=== PATIENT | female | born 2000 | race Caucasian/White ===

== ENCOUNTER 2021-12-11 02:15 | Emergency (ER) | payer OTHER, SELFPAY ==
[2021-12-11 02:20] VITALS: BP 124/79; PULSE 76; RESP 16; TEMP 36.4; O2SAT 100
--- NOTE | 2021-12-11 02:41 | PC.NURSE ---
Pt states her and her boyfriend broke up tonight and her boyfriend was shay being a rika about it therefore the pt told her boyfriend you make me want to kill myself sometimes and the pt left with her prescription medication which led the boyfriend to call 911. pt states denies SI/HI or having a plan at this time. Pt states I would never be able to kill myself
--- NOTE | 2021-12-11 02:56 | ED.GENADULT ---
HPI - General Adult General Chief complaint: Psychiatric Symptoms Stated complaint: suicidal ideation Time Seen by Provider: 12/11/21 02:44 History of Present Illness HPI narrative: Patient 21-year-old female who presents the emergency department with chief complaint of suicidal statement. The patient reports she was in an argument with her boyfriend and they ultimately ended up breaking up the relationship patient states that she took her medications and was in the go to her mother's house and stated that she wanted to . The patient states she did not have an actual plan to harm herself and did not plan on actually harming herself Review of Systems Review of Systems: A 10 system review of systems was completed on the patient and is negative except for what is stated in the HPI. Nursing and ancillary documentation was reviewed. Exam Narrative: GENERAL: Well-appearing, well-nourished, and in no acute distress. HEAD: Normocephalic, atraumatic. EYES: PERRLA and EOMI. ENT: Nares clear, no rhinorrhea or epistaxis. Mucous membranes moist. NECK: Supple. CHEST: Clear to auscultation. No respiratory distress. HEART: Regular rate and rhythm. No murmur heard. Normal peripheral pulses. ABDOMEN: Soft, nontender, nondistended, normal active bowel sounds. EXTREMITIES: Normal range of motion. No edema. SKIN: Warm, dry, no rash. NEURO: No focal deficits. Alert and oriented x3. PSYCH: Normal mood and affect. Course Course Emergency Course: Patient is medically cleared for psychiatric evaluation referral transport and admission Vital Signs Vital signs: Vital Signs Temperature 36.4 C 12/11/21 02:20 Pulse Rate 76 12/11/21 02:20 Respiratory Rate 16 12/11/21 02:20 Blood Pressure 124/79 12/11/21 02:20 Pulse Oximetry 100 12/11/21 02:20 Oxygen Delivery Room Air 12/11/21 02:20 Temperature 36.4 C 12/11/21 02:20 Pulse Rate 76 12/11/21 02:20 Respiratory Rate 16 12/11/21 02:20 Blood Pressure 124/79 12/11/21 02:20 Pulse Oximetry 100 12/11/21 02:20 Oxygen Delivery Room Air 12/11/21 02:20 Medical Decision Making Vital Signs Vital Signs: Vital Signs Temperature 36.4 C 12/11/21 02:20 Pulse Rate 76 12/11/21 02:20 Respiratory Rate 16 12/11/21 02:20 Blood Pressure 124/79 12/11/21 02:20 Pulse Oximetry 100 12/11/21 02:20 Oxygen Delivery Room Air 12/11/21 02:20 Temperature 36.4 C 12/11/21 02:20 Pulse Rate 76 12/11/21 02:20 Respiratory Rate 16 12/11/21 02:20 Blood Pressure 124/79 12/11/21 02:20 Pulse Oximetry 100 12/11/21 02:20 Oxygen Delivery Room Air 12/11/21 02:20 Lab Data Result diagrams: 12/11/21 03:01 12/11/21 03:01 Labs: Lab Results 12/11/21 12/11/21 12/11/21 Range/Units 02:58 02:58 02:58 WBC (4.5-10.0) K/mm3 RBC (4.2-5.4) M/mm3 Hgb (12.0-15.0) g/dL Hct (37.0-47.0) % MCV (80-100) fl MCH (26-34) pg MCHC (32-36) g/dl RDW (11.5-14.5) % Plt Count (150-375) k/mm3 MPV (7.4-10.4) fl Immature Gran % (Auto) (0-0.5) % Neut % (Auto) (45.5-73.1) % Lymph % (Auto) (18.3-44.2) % [place] % (Auto) (2.6-8.5) % Eos % (Auto) (0-4.4) % Baso % (Auto) (0.2-1.2) % Lymph # (Auto) (0.9-3.2) K/mm3 [place] # (Auto) (0.1-0.6) K/mm3 Eos # (Auto) (0-0.3) K/mm3 Baso # (Auto) (0.0-0.1) K/mm3 Abs Immat Gran (auto) (0.00-0.031) K/mm3 Absolute Neuts (auto) (1.3-6.7) K/mm3 Absolute Nucleated RBC (0.0-0.012) K/mm3 Nucleated RBC % (0.0-0.2) % Sodium (137-145) mmol/L Potassium (3.4-5.0) mmol/L Chloride (98-107) mmol/L Carbon Dioxide (22-30) mmol/L Anion Gap (8-16) mmol/L BUN (7-17) mg/dL Creatinine (0.7-1.0) mg/dL Estim Creat Clear Calc ml/min Estimated GFR (59 - ) Glucose (65-110) mg/dL Calcium (8.4-10.2) mg/dL Total Bilirubin (0.2-1.3) mg/dL AST (14-36) U/L
[2021-12-11 03:12] LABS: Basophils Absolute Auto 0.1 K/mm3 (0.0-0.1); Basophils Percent Auto 0.5 % (0.2-1.2); Eosinophils Absolute Auto 0.2 K/mm3 (0-0.3); Eosinophils Percent Auto 1.6 % (0-4.4); Hematocrit 37.1 % (37.0-47.0); Hemoglobin 12.2 g/dL (12.0-15.0); Immature Granulocyte Absolute 0.05 K/mm3 (0.00-0.031); Immature Granulocyte Percent A 0.4 % (0-0.5); Lymphocytes Absolute Auto 2.72 K/mm3 (0.9-3.2); Lymphocytes Percent Auto 24.2 % (18.3-44.2); Mean Corpuscular HGB Conc 32.9 g/dl (32-36); Mean Corpuscular Hemoglobin 28.9 pg (26-34); Mean Corpuscular Volume 87.9 fl (80-100); Mean Platelet Volume 10.2 fl (7.4-10.4); Monocytes Absolute Auto 0.8 K/mm3 (0.1-0.6); Monocytes Percent Auto 6.9 % (2.6-8.5); Neutrophils Absolute Auto 7.5 K/mm3 (1.3-6.7); Neutrophils Percent Auto 66.4 % (45.5-73.1); Platelet Count Result 230 k/mm3 (150-375); Red Blood Count 4.22 M/mm3 (4.2-5.4); Red Cell Distribution Width 12.7 % (11.5-14.5); White Blood Count 11.3 K/mm3 (4.5-10.0)
[2021-12-11 03:13] LABS: Appearance Urine Clear (Clear); Bilirubin Urine Negative (Negative); Blood Urine Trace-intact (Negative); Color Urine Yellow (Yellow); Glucose Urine UA Negative (Negative); Ketones Urine Negative (Negative); Leukocyte Esterase Ur Trace LEU/UL (Negative); Nitrate Urine Negative (Negative); Protein Urine Trace mg/dL (Negative); Urobilinogen Urine 0.2 mg/dL (<2.0)
[2021-12-11 03:16] LABS: Bacteria Urine Trace /hpf; Mucus Urine Rare /lpf; Squamous Epithelial Cell Urine Moderate /hpf (Few)
[2021-12-11 03:17] LABS: Add Urine Microscopic? YES
[2021-12-11 03:22] LABS: Acetaminophen < 10 ug/mL (10-30); Ethanol < 10 mg/dL (<10); Salicylate < 1.0 mg/dL (2-20)
[2021-12-11 03:23] LABS: Alanine Aminotransferase 13 U/L (6-35); Albumin Level 4.1 g/dL (3.5-5.1); Alkaline Phosphatase 48 U/L (38-126); Anion Gap 9 mmol/L (8-16); Aspartate Amino Transferase 17 U/L (14-36); Bilirubin,Total 0.2 mg/dL (0.2-1.3); Blood Urea Nitrogen 15 mg/dL (7-17); Calcium 8.6 mg/dL (8.4-10.2); Carbon Dioxide 23 mmol/L (22-30); Chloride 107 mmol/L (98-107); Estimated CRCL calculation 95 ml/min; Estimated Glomerular Filt Rate > 60; Glucose 100 mg/dL (65-110); Potassium 3.8 mmol/L (3.4-5.0); Sodium 139 mmol/L (137-145)
[2021-12-11 03:32] LABS: Amphetamine Screen Urine Negative (Negative); Barbiturate Screen Urine Negative (Negative); Benzodiazepines Screen Urine Negative (Negative); Cannabinoid Screen Urine Positive (Negative); Cocaine Screen Urine Negative (Negative); Methadone Screen Urine Negative (Negative); Opiate Screen Urine Negative (Negative); Phencyclidine Screen Urine Negative (Negative)
--- NOTE | 2021-12-11 03:42 | PC.NURSE ---
[facility] worker Lizzeth reports that a shop steward will call this ED back and they have a 2 hour window to assess pt. Primary RN Patricia notified.
[2021-12-11 03:50] LABS: SARS-CoV-2 RNA PCR Negative
== END 2021-12-11 05:45 | disposition home or self-care (01) ==
PROVIDERS: Emergency Provider Emergency Medicine; PCP Nurse Practitioner Adult Health
DX: F32.A Depression, unspecified (principal); Z20.822 Contact with and (suspected) exposure to COVID-19
CPT/HCPCS: 36415; 80053; 80307; 81001; 81025; 84443; 85025; 99284; U0003; U0005